=== PATIENT | male | born 1995 | race African-American/Black ===

== ENCOUNTER 2019-05-21 12:51 | Emergency (ER) | payer SELFPAY ==
[~2019-05-21] VITALS: Ht 177.8 cm; Wt 97.5 kg
[2019-05-21 13:12] VITALS: BP 115/88
== END 2019-05-21 14:57 | disposition home or self-care (01) ==
LOC: ED 12:51
DX: J45.901 Unspecified asthma with (acute) exacerbation (principal)
CPT/HCPCS: J1885; J7620; Q0092